=== PATIENT | female | born 1980 | race African-American/Black ===

== ENCOUNTER 2020-02-28 14:37 | Emergency (ER) | payer OTHER, SELFPAY ==
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
[2020-02-28 14:38] VITALS: BP 118/66; PULSE 79; RESP 19; TEMP 36.3; O2SAT 100
[2020-02-28] MEDS: TETANUS,DIPHTHERIA,AC PERTUSSIS ADULT (0.5 ML) BOOSTRIX IM (15:03)
[2020-02-28] MEDS: CEPHALEXIN 500 MG CAPSULE PO (15:04)
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
[2020-02-28 16:09] VITALS: BP 105/69; PULSE 75; RESP 16; O2SAT 99
== END 2020-02-28 16:11 | disposition home or self-care (01) ==
PROVIDERS: Emergency Provider Emergency Medicine; PCP Emergency Medicine
DX: S51.832A Puncture wound without foreign body of left forearm, initial encounter (principal); X99.1XXA Assault by knife, initial encounter; Z23 Encounter for immunization
CPT/HCPCS: 73060; 90471; 90715; 99283; A9270

== ENCOUNTER 2020-04-24 08:00 | Emergency (ER) | payer OTHER, SELFPAY ==
[2020-04-24 08:07] VITALS: BP 112/78; PULSE 84; RESP 16; TEMP 36.6; O2SAT 100
--- NOTE | 2020-04-24 08:22 | ED.BACK ---
HPI - Back Pain/Injury General Chief Complaint: Back Pain/Injury Stated Complaint: hurt my back Time Seen by Provider: 04/24/20 08:21 Source: patient Mode of arrival: ambulatory Limitations: no limitations History of Present Illness HPI Narrative: Patient is a 39-year-old female complaining of right lower back pain radiating to her right buttocks, 8 out of 10, sharp, worse with movement and palpation, started approximately 3 days ago after stepped down wrong while carrying a box. Patient denies any neck pain, chest pain, back pain or abdominal pain. Patient denies any fever or chills. Patient denies any urinary symptoms. Patient denies any weakness numbness or incontinence Related Data Home Medications Medication Instructions Recorded Confirmed No Home Medications 04/24/20 04/24/20 Allergies Allergy/AdvReac Type Severity Reaction Status Date / Time No Known Allergies Allergy Verified 04/24/20 08:13 Review of Systems Review of Systems: All systems reviewed & are unremarkable except as noted in HPI and below Constitutional: Constitutional: Denies body ache(s), Denies chills, Denies excessive sweating, Denies fatigue, Denies fever(s), Denies headache(s), Denies lethargy, Denies malaise, Denies weakness and Denies weight loss Eyes: Eyes: Denies blurry vision, Denies change in vision and Denies loss of vision ENT: Denies dizziness, Denies ear discharge, Denies headache(s), Denies lip swelling, Denies epistaxis, Denies nasal congestion, Denies neck pain, Denies throat swelling and Denies tongue swelling Cardiovascular: Cardiovascular: Denies chest pain, Denies chest pain at rest, Denies chest pain with activity, Denies diaphoresis, Denies rapid heart rate, Denies edema, Denies irregular heart rhythm, Denies lightheadedness, Denies palpitations, Denies dyspnea and Denies dyspnea on exertion Respiratory: Respiratory: Denies chest congestion, Denies cough, Denies hemoptysis, Denies dyspnea and Denies dyspnea on exertion Gastrointestinal: Gastrointestinal: Denies abdominal pain, Denies melena, Denies hematochezia, Denies diarrhea, Denies nausea, Denies vomiting and Denies hematemesis Musculoskeletal: Musculoskeletal: Denies abnormal gait, Denies deformity, Denies joint swelling, Denies neck pain and Denies numbness Neurologic: Denies Abnormal speech present, Denies abnormal gait, Denies confusion, Denies dizziness, Denies headache(s), Denies focal weakness, Denies loss of vision, Denies numbness, Denies Other visual disturbances, Denies Sensory deficit (Neuro) and Denies weakness Psychiatric: Psychiatric: Denies confusion, Denies depression, Denies auditory hallucinations, Denies homicidal ideation and Denies suicidal ideation Endocrine: Endocrine: Denies cold intolerance, Denies excessive sweating, Denies fatigue, Denies heat intolerance and Denies palpitations Hematologic/Lymphatic: Hematologic/Lymphatic: Denies easy bleeding and Denies easy bruising Allergic/Immunologic: Allergic/Immunologic: Denies lip swelling, Denies throat swelling and Denies tongue swelling PMFSH Past Medical History Medical History (Updated 04/24/20 @ 08:25 by Burke Kirkpatrick MD) Chronic tonsillitis Surgical History Surgical History (Updated 05/06/19 @ 09:13 by Katerin Andrew) History of tubal ligation Family History Family History (Updated 01/12/14 @ 07:13 by DOCTOR UNKNOWN) Other Family history of arthritis Hypertension Social History Social History Smoking status: Never smoker Alcohol intake: current Gender identity (if verbalized by the patient): Male Exam Const: General: cooperative, healthy appearing, comfortable, no acute distress, well developed, alert and awake; No confusion Orientation/consciousness: oriented to person, oriented to place, oriented to time, patient oriented x3 and No confusion Limitations: no limitations HENMT: Head: normal to inspection, normocephalic and atraumatic Ears: hear
[2020-04-24] MEDS: KETOROLAC 30 MG/ML VIAL (*BKC) IM (09:16)
[2020-04-24] MEDS: CYCLOBENZAPRINE HCL 10 MG TABLET PO (09:16)
--- NOTE | 2020-04-24 09:25 | PC.NURSE ---
no preg test due to pt having hysterectomy
[2020-04-24 09:55] VITALS: BP 116/60; PULSE 68; RESP 16; O2SAT 100
== END 2020-04-24 09:58 | disposition home or self-care (01) ==
PROVIDERS: Emergency Provider Emergency Medicine; PCP Emergency Medicine
DX: S39.012A Strain of muscle, fascia and tendon of lower back, initial encounter (principal); X50.9XXA Other and unspecified overexertion or strenuous movements or postures, initial encounter
CPT/HCPCS: 96372; 99283; A9270; J1885

== ENCOUNTER 2020-06-01 11:00 | Outpatient (RCR) | payer OTHER, SELFPAY ==
--- NOTE | 2020-05-25 11:21 | PTOPEVAL ---
PHYSICAL THERAPY EVALUATION Thank you for referring Candy Drew to [facility].? Lisa was evaluated with a dx of low back pain/sprain with right leg radiculopathy. The patient is scheduled to be seen for therapy? 2 x/week for 3 weeks. Please review, sign, date and return this plan of care VALARIE. I agree with and certify that the following plan of care is medically necessary. 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 The patient was carrying a long, heavier object and missed a step, caught herself before she fell. The patient began having pain at her back when it happened then got worse as the day went on. The patient was unable to get up the next day due to pain at back and right leg to foot. The patient has been off work since then. Subjective Information The patient had televisit with Query Text:As Reported By Patient/ MD, no testing yet, and MD Family ordered the therapy. The patient is currently caring for a 1 year foster child which requires some lifting. Prior Level of Function Activity Level (Last 3 Months) Occupation delivery, went to gym for cardio/lifting 4x a week prior to injury Hand Dominance Right Activity of Daily Living Ability Independent Indoor/Home Mobility Independent Community Mobility Independent Stairs Ability Independent Functional Cognition (Planning, Shopping Independent , Taking Medications) Cooking Yes Cleaning Yes Laundry Yes Shopping Yes Driving Yes Medications Home Meds (Include: OTC, RX, Vitamins, for her back; hydrocodone prn, Herbals, Dose, Route,and Frequency) Advil on schedule Query Text:Home Med Entries Will No Longer Recall From Past Visits. Home Meds Must Be Re-ente
--- NOTE | 2020-06-06 14:58 | PCPTNOTE ---
Patient did not show up for scheduled appointment this date. Called and had to leave a message.
--- NOTE | 2020-06-08 14:21 | PCPTNOTE ---
Patient did not show up for scheduled appointment this date.
--- NOTE | 2020-06-11 11:43 | PCPTNOTE ---
Patient did not show up for scheduled appointment this date. Called and had to leave a message- instructed patient that therapy is being discontinued due to 3 no show appts in a row.
--- NOTE | 2020-06-11 11:44 | PCPTNOTE ---
PHYSICAL THERAPY DISCHARGE Admitting Provider: Attending Provider: Jace Shrestha MD Patient:Candy Drew Date of :1980 Patient has not returned for any further treatments since 06/01/2020, therefore she will be discharged at this time. Patient?s initial visit was on 05/25/2020 10:00 and she had a total of 3 visits with her dx of low back spasms. The goals have been partially met. Thank you for referring this patient to [facility]. Please review, sign, date and return this discharge summary VALARIE. I have been updated about the patient's current status and I agree with discharge from the above service at this time. Referring Physician Date
== END 2020-06-11 14:45 | disposition home or self-care (01) ==
LOC: ANHPT 11:00
PROVIDERS: PCP Emergency Medicine; Referring Provider Emergency Medicine; Visit Provider Emergency Medicine
DX: M62.830 Muscle spasm of back (principal)
CPT/HCPCS: 97014; 97110; 97140; 97161; G0283

== ENCOUNTER 2021-07-29 12:42 | Emergency (ER) | payer OTHER, SELFPAY ==
--- NOTE | ~2021-07-29 | XR_ITS ---
EXAMINATION: XR elbow RT min 3V, XR wrist RT min 3V DATE: 07/29/2021 14:35 INDICATION: Right wrist and elbow pain with numbness and tingling TECHNIQUE: 1. Anteroposterior, two oblique and lateral views of the right elbow were obtained. 2. Dorsal palmar, oblique, lateral and ulnar deviated views of the right wrist were obtained. COMPARISON: None. FINDINGS: Normal alignment at the right elbow, wrist and visualized hand. No fracture. Of the visualized joint spaces are normal with no erosions or osteophytosis. Soft tissues are unremarkable. No right elbow fernanda int effusion. Of note the radiographs include significant portions of the proximal and distal forea rm however it is unclear whether there is definitive overlap with complete visualization of the midpo rtion of the radius and ulna. IMPRESSION: 1. Negative right wrist and elbow radiographs. Reviewed, dictated and finalized at location A. IMPRESSION: 1. Negative right wrist and elbow radiographs.
[2021-07-29 12:43] VITALS: BP 114/66; PULSE 84; RESP 14; TEMP 36.8; O2SAT 100
[2021-07-29] MEDS: IBUPROFEN 600 MG TABLET PO (14:07)
--- NOTE | 2021-07-29 14:11 | ED.EXTPRO ---
HPI - Extremity Problem General Chief complaint: Extremity Problem,Nontraumatic Stated complaint: upper extremity pain Time Seen by Provider: 07/29/21 13:14 Source: patient Mode of arrival: ambulatory Limitations: no limitations History of Present Illness HPI Narrative: This is a 40 year old female right hand dominant who presents for evaluation of right elbow and right wrist pain . She has noticed intermittent pain for 1- 2 weeks. She reports her pain occurs mostly at night. She has worsening pain with movement of right wrist. She denies trauma, swelling or redness. She is also having intermittent tingling in her hands. Denies other focal deficits. Related Data Allergies Allergy/AdvReac Type Severity Reaction Status Date / Time No Known Allergies Allergy Verified 07/29/21 12:45 Review of Systems Review of Systems: All systems reviewed & are unremarkable except as noted in HPI and below PMFSH Past Medical History Medical History Chronic tonsillitis Surgical History Surgical History History of tubal ligation Family History Family History (Updated 01/12/14 @ 07:13 by DOCTOR UNKNOWN) Other Family history of arthritis Hypertension Social History Social History Smoking status: Never smoker Alcohol intake: current Gender identity (if verbalized by the patient): Male Exam Const: General: alert Orientation/consciousness: patient oriented x3 Eyes: EOM: EOMs intact bilaterally Resp: Effort & Inspection: normal respiratory effort Skin: General skin exam: normal color Rashes: no rashes Neuro: General: patient oriented x3, moves all extremities and CN's II-XI intact bilaterally Extrem: Other: palpable brachia/ radial, ulnar pulses, no swelling, no deformity, no erythema. reproducible pain with movement at wrist and palpation. sensation intact. Psych: Mental Status: mental status grossly normal Affect: normal affect Course Reevaluation(s) Reevaluation #1: I discussed with patient she may have pitch nerve or tendonitis. She will be started on antiinflammatomies, wear brace and follow up with PCP . Date: 07/29/21 Time: 14:15 Vital Signs Vital signs: Vital Signs Temperature 98.3 F 07/29/21 12:43 Pulse Rate 84 07/29/21 12:43 Respiratory Rate 14 07/29/21 12:43 Blood Pressure 114/66 07/29/21 12:43 Pulse Oximetry 100 07/29/21 12:43 Temperature 98.3 F 07/29/21 12:43 Pulse Rate 84 07/29/21 12:43 Respiratory Rate 14 07/29/21 12:43 Blood Pressure 114/66 07/29/21 12:43 Pulse Oximetry 100 07/29/21 12:43 MDM - Extremity (Nontraumatic) Imaging Data Radiologist's impression: ITS Impressions Elbow X-Ray 07/29/21 14:39 IMPRESSION: 1. Negative right wrist and elbow radiographs. Wrist X-Ray 07/29/21 14:39 IMPRESSION: 1. Negative right wrist and elbow radiographs. Discharge Plan Discharge Clinical Impression: Paresthesia and pain of right extremity Patient Disposition: Home, Self-Care Condition: Stable Instructions: Peripheral Neuropathy (ED), Paresthesia (ED) Additional Instructions: Today you were evaluated for possible nerve inflammation. Get wrist brace to see if this helps with your symptoms. Take antiinflammatories and follow up with your primary care provider. Prescriptions: New naproxen [Naprosyn] 500 mg tablet 500 mg PO BID PRN (Reason: pain) Qty: 20 RF: 0 methylprednisolone [Medrol (Gerald)] 4 mg tablets,dose pack See Rx Instructions .ROUTE .COMPLEX Qty: 21 RF: 0 No Action cyclobenzaprine 10 mg tablet 10 mg PO TID PRN (Reason: muscle spasm) Qty: 9 RF: 0 naproxen [Naprosyn] 500 mg tablet 500 mg PO BID PRN (Reason: pain) Qty: 10 RF: 0 Follow-up/Referrals: Jace Shrestha MD [Primary Care Provider] -
== END 2021-07-29 15:15 | disposition home or self-care (01) ==
PROVIDERS: Emergency Provider General Practice; PCP Emergency Medicine
DX: R20.2 Paresthesia of skin (principal); M25.521 Pain in right elbow; M25.531 Pain in right wrist
CPT/HCPCS: 73080; 73110; 99284; A9270

== ENCOUNTER 2021-09-06 16:06 | Outpatient (CLI) | payer OTHER, SELFPAY ==
--- NOTE | ~2021-09-06 | US_ITS ---
EXAMINATION: US abdomen complete DATE: 09/06/2021 16:50 INDICATION: Elevated ferritin TECHNIQUE: Multiple grayscale and Doppler ultrasound images of the abdomen were obtained. COMPARISON: None available FINDINGS: Bowel gas obscures visualization of the pancreas. The liver is normal with normal echogenic ity and echotexture. No surface nodularity. Normal hepatopetal flow in the main portal vein. The gall bladder is normal with no abnormal wall thickening, pericholecystic fluid or stones. The normal commo n bile duct measures 3 mm. There was no sonographic Richardson sign. The visualized portions of the aorta and inferior vena cava are normal. The right kidney measures 11.5 x 5.5 x 3.6 cm. The left kidney measures 11.1 x 4.6 x 5.4 cm. The kidn eys demonstrate normal parenchymal echogenicity. There is no hydronephrosis. The spleen is normal in appearance and measures 9.6 cm. IMPRESSION: 1. No sonographic correlate for the patient's symptoms. Reviewed, dictated and finalized at location F.
== END 2021-09-06 16:07 | disposition home or self-care (01) ==
LOC: ANHIMG 16:10
PROVIDERS: PCP Emergency Medicine; Visit Provider Emergency Medicine
DX: R79.89 Other specified abnormal findings of blood chemistry (principal)
CPT/HCPCS: 76700

== ENCOUNTER 2021-10-23 08:42 | Outpatient (CLI) | payer OTHER, SELFPAY ==
--- NOTE | 2021-10-23 11:00 | NEURO_ITS ---
Impression: # Complains of numbness and pain in right hand. # Normal nerve conduction study with no evidence of Carpal Tunnel Syndrome or ulnar neuropathy. # Normal needle/EMG exam. # Clinical correlation recommended. Nerve Conduction Studies Anti Sensory Summary Table Stim Site NR Peak (ms) P-T Amp (?V) Site1 Site2 Delta-P (ms) Dist (cm) Antolin (m/s) Right Median Anti Sensory (2-3nd Digit) Wrist 3.1 30.6 Wrist 2-3nd Digit 3.1 14.0 45 Wrist 3.1 61.9 Wrist 2-3nd Digit 3.1 14.0 45 Right Radial Anti Sensory (Base 1st Digit) Wrist 2.9 22.2 Wrist Base 1st Digit 2.9 0.0 Right Ulnar Anti Sensory (5th Digit) Wrist 2.4 9.8 Wrist 5th Digit 2.4 14.0 58 Motor Summary Table Stim Site NR Onset (ms) O-P Amp (mV) Site1 Site2 Delta-0 (ms) Dist (cm) Antolin (m/s) Right Median Motor (Abd Poll Brev) Wrist 2.9 2.9 Elbow Wrist 4.9 26.0 53 Elbow 7.8 3.0 Right Ulnar Motor (Abd Dig Minimi) Wrist 3.0 6.8 A Elbow Wrist 5.1 28.0 55 A Elbow 8.1 6.5 F Wave Studies NR F-Lat (ms) L-R F-Lat (ms) Right Median (Mrkrs) (Abd Poll Brev) 26.62 Right Ulnar (Mrkrs) (Abd Dig Min) 27.36 EMG Side Muscle Nerve Root Ins Act Fibs Amp Dur Recrt Comment Right 1stDorInt Ulnar C8-T1 Nml Nml Nml Nml Nml Right Ext Indicis Radial (Post Int) C7-8 Nml Nml Nml Nml Nml Right Ext Digitorum Radial (Post Int) C7-8 Nml Nml Nml Nml Nml Right BrachioRad Radial C5-6 Nml Nml Nml Nml Nml Right PronatorTeres Median C6-7 Nml Nml Nml Nml Nml Right Abd Poll Brev Median C8-T1 Nml Nml Nml Nml Nml MTDD
== END 2021-10-23 08:43 | disposition home or self-care (01) ==
LOC: ANHNEURO 08:44
PROVIDERS: PCP Emergency Medicine; Visit Provider Emergency Medicine
DX: R50.9 Fever, unspecified (principal)
CPT/HCPCS: 95886; 95909

== ENCOUNTER 2022-02-10 21:57 | Emergency (ER) | payer OTHER, SELFPAY ==
--- NOTE | ~2022-02-10 | CT_ITS ---
EXAMINATION: CT abdomen pelvis w con DATE: 02/10/2022 23:53 INDICATION: Left lower quadrant abdominal pain. TECHNIQUE: Computed tomography (CT) of the abdomen and pelvis was performed with 100 mL Omnipaque 350 intravenous contrast. Automated exposure control and iterative reconstruction technique were employe d. The dose-length product was 734.47 mGy-cm. COMPARISON: None. FINDINGS: The visualized portions of the lung bases demonstrate mild atelectasis. No pleural effusion . The heart size is normal. No pericardial effusion. The liver, gallbladder, spleen, pancreas, adrena l glands, and kidneys are normal. There are surgical changes of the stomach. There are no dilated loo ps of bowel. The appendix is normal. There are no pathologically enlarged lymph nodes. There is physi ologic fluid in the pelvis. There is mild thoracolumbar spondylosis. IMPRESSION: 1. No specific etiology for the patient's symptoms. Reviewed, dictated and finalized at location A.
[2022-02-10 22:00] VITALS: BP 130/66; PULSE 78; RESP 16; TEMP 36.9; O2SAT 100
[2022-02-10 22:38] LABS: Basophils Percent Auto 0.6 % (0.2-1.2); Eosinophils Absolute Auto 0.1 K/mm3 (0-0.3); Eosinophils Percent Auto 1.3 % (0-4.4); Hematocrit 41.5 % (37.0-47.0); Hemoglobin 12.8 g/dL (12.0-15.0); Immature Granulocyte Absolute 0.01 K/mm3 (0.00-0.031); Immature Granulocyte Percent A 0.1 % (0-0.5); Lymphocytes Absolute Auto 3.57 K/mm3 (0.9-3.2); Lymphocytes Percent Auto 52.8 % (18.3-44.2); Mean Corpuscular HGB Conc 30.8 g/dl (32-36); Mean Corpuscular Hemoglobin 27.1 pg (26-34); Mean Corpuscular Volume 87.7 fl (80-100); Mean Platelet Volume 9.8 fl (7.4-10.4); Monocytes Absolute Auto 0.5 K/mm3 (0.1-0.6); Monocytes Percent Auto 7.1 % (2.6-8.5); Neutrophils Absolute Auto 2.6 K/mm3 (1.3-6.7); Neutrophils Percent Auto 38.1 % (45.5-73.1); Platelet Count Result 258 k/mm3 (150-375); Red Blood Count 4.73 M/mm3 (4.2-5.4); Red Cell Distribution Width 13.2 % (11.5-14.5); White Blood Count 6.8 K/mm3 (4.5-10.0)
[2022-02-10 22:49] LABS: Alanine Aminotransferase 19 U/L (6-35); Albumin Level 4.3 g/dL (3.5-5.1); Alkaline Phosphatase 53 U/L (38-126); Anion Gap 6 mmol/L (8-16); Aspartate Amino Transferase 29 U/L (14-36); Bilirubin,Total 0.5 mg/dL (0.2-1.3); Blood Urea Nitrogen 14 mg/dL (7-17); Carbon Dioxide 28 mmol/L (22-30); Chloride 105 mmol/L (98-107); Estimated CRCL calculation 84 ml/min; Estimated Glomerular Filt Rate > 60; Glucose 108 mg/dL (65-110); Lipase 59 U/L (23-300); Sodium 139 mmol/L (137-145)
--- NOTE | 2022-02-10 23:37 | ED.GENADULT ---
HPI - General Adult General Chief complaint: Abdominal Pain Stated complaint: abd pain Time Seen by Provider: 02/10/22 23:08 History of Present Illness HPI narrative: 41-year-old female presented emerged department for evaluation of left lower quadrant pain. Patient states the symptoms started about 630 tonight when she was laying on the bed. Patient denies any falls or injuries. Patient states she does have some associated nausea without vomiting. Patient states she also does have a history of constipation. 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 Patient did have a hysterectomy at that time. Related Data Allergies Allergy/AdvReac Type Severity Reaction Status Date / Time No Known Allergies Allergy Verified 02/10/22 22:01 Review of Systems Review of Systems: CONSTITUTIONAL: Denies fever, chills, or sweats. EYES: Denies visual changes, redness, or discharge. ENT: Denies rhinorrhea, congestion, sore throat, or otalgia. CARDIOVASCULAR: Denies chest pain, palpitations, or edema. RESPIRATORY: Denies cough or dyspnea. GASTROINTESTINAL: See HPI GENITOURINARY: Denies dysuria or hematuria. SKIN: Denies rash or itching. MUSCULOSKELETAL: Denies back pain, joint pain, or myalgia. NEUROLOGIC: Denies headache, numbness, or weakness. COUNTS INCLUDE 234 BEDS AT THE [facility] Past Medical History Medical History (Updated 02/11/22 @ 01:10 by Christoph Keith MD) Chronic tonsillitis Surgical History Surgical History History of tubal ligation Status post total hysterectomy and bilateral salpingo-oophorectomy Family History Family History Other Family history of arthritis Hypertension Social History Social History (Updated 12/11/21 @ 15:08 by Kendy Bower MA) Smoking status: Never smoker Alcohol intake: current Substance use: never Substance use type: does not use Gender identity (if verbalized by the patient): Female Sexual Orientation (if Verbalized by the Patient): Straight or Heterosexual Exam Narrative: APPEARANCE: Well appearing, no pain, no distress, well-nourished. HEAD: normocephalic, atraumatic. EYES: PERRLA/EOMI, conjunctivae clear. NOSE: Normal no drainage THROAT: Pharynx clear, no exudate. NECK: Supple. No adenopathy, no masses. RESPIRATORY: Airway patent, respirations nonlabored. Clear to auscultation bilaterally, no rales, rhonchi, wheezing. CARDIOVASCULAR: Regular rate and rhythm without murmurs rubs or gallops. ABDOMINAL: Soft, lower abdominal tenderness to palpation. No rebound or guarding MUSCULOSKELETAL: Moves all extremities. Strength/ROM intact, No edema, No calf tenderness. NEURO: Alert. Cranial nerves II through XII intact. Grossly intact SKIN: Warm, dry. Normal Color Course Course Emergency Course: And did feel improved with treatment. Patient had bilirubin of the results of the labs and imaging. All questions concerns were addressed. Vital Signs Vital signs: Vital Signs Temperature 98.5 F 02/10/22 22:00 Pulse Rate 78 02/10/22 22:00 Respiratory Rate 16 02/10/22 22:00 Blood Pressure 130/66 02/10/22 22:00 Pulse Oximetry 100 02/10/22 22:00 Temperature 98.5 F 02/10/22 22:00 Pulse Rate 62 02/11/22 01:06 Respiratory Rate 16 02/11/22 01:06 Blood Pressure 110/68 02/11/22 01:06 Pulse Oximetry 100 02/11/22 01:06 Medical Decision Making Vital Signs Vital Signs: Vital Signs Temperature 98.5 F 02/10/22 22:00 Pulse Rate 78 02/10/22 22:00 Respiratory Rate 16 02/10/22 22:00 Blood Pressure 130/66 02/10/22 22:00 Pulse Oximetry 100 02/10/22 22:00 Temperature 98.5 F 02/10/22 22:00 Pulse Rate 62 02/11/22 01:06 Respiratory Rate 16 02/11/22 01:06 Blood Pressure 110/68 02/11/22 01:06 Pulse Oximetry 100 02/11/22 01:06 Lab Data Lab results reviewed: Yes I re
[2022-02-11] MEDS: HYDROmorphone HCL INJ (*CRX) 1 MG/ML SYR 0.5 MG IV PUSH (00:12)
[2022-02-11] MEDS: SODIUM CHLORIDE 0.9% IV 1,000 ML 999 ML IV CONT (00:13)
[2022-02-11 00:51] LABS: Appearance Urine Slightly Cloudy (Clear); Bilirubin Urine Negative (Negative); Blood Urine Negative (Negative); Color Urine Yellow (Yellow); Glucose Urine UA Negative (Negative); Ketones Urine Negative (Negative); Leukocyte Esterase Ur Negative LEU/UL (Negative); Nitrate Urine Negative (Negative); Protein Urine Negative (Negative); Urobilinogen Urine 0.2 mg/dL (<2.0); pH Urine 5.5 (5.0-9.0)
[2022-02-11 01:03] LABS: Mucus Urine Rare /lpf; RBC Urine 0-2 /hpf (0-2); Squamous Epithelial Cell Urine Few /hpf (Few); WBC Urine 0-3 /hpf
[2022-02-11 01:04] LABS: Add Urine Microscopic? NO
[2022-02-11 01:06] VITALS: BP 110/68; PULSE 62; RESP 16; O2SAT 100
== END 2022-02-11 01:29 | disposition home or self-care (01) ==
PROVIDERS: Emergency Provider Emergency Medicine; PCP Emergency Medicine
DX: R10.32 Left lower quadrant pain (principal); Z90.710 Acquired absence of both cervix and uterus; Z90.722 Acquired absence of ovaries, bilateral
CPT/HCPCS: 36415; 74177; 80053; 81003; 81025; 83690; 85025; 96361; 96374; 99284; J1170; J7030; Q9967

== ENCOUNTER 2022-04-28 11:55 | Emergency (ER) | payer OTHER, SELFPAY ==
[2022-04-28 12:19] VITALS: BP 113/72; PULSE 100; RESP 16; TEMP 36.4; O2SAT 99
[2022-04-28 13:07] LABS: Influenza A QL RT-PCR Positive (Negative); Influenza B QL RT-PCR Negative (Negative); RSV RNA, RT-PCR Negative (Negative); SARS-CoV-2 RNA PCR Negative
--- NOTE | 2022-04-28 13:53 | ED.GENADULT ---
HPI - General Adult General Chief complaint: Upper Respiratory Infection Stated complaint: cough,fever,body aches Time Seen by Provider: 04/28/22 13:13 History of Present Illness HPI narrative: 41-year-old female presented to the emergency department for evaluation of 2 days of cough and generalized fatigue. Patient did test positive for influenza A. Related Data Allergies Allergy/AdvReac Type Severity Reaction Status Date / Time No Known Allergies Allergy Verified 02/10/22 22:01 Review of Systems Review of Systems: CONSTITUTIONAL: Subjective fever EYES: Denies visual changes, redness, or discharge. ENT: See HPI CARDIOVASCULAR: Denies chest pain, palpitations, or edema. RESPIRATORY: See HPI GASTROINTESTINAL: Denies abdominal pain, nausea, vomiting, or diarrhea. GENITOURINARY: Denies dysuria or hematuria. SKIN: Denies rash or itching. MUSCULOSKELETAL: Denies back pain, joint pain, or myalgia. NEUROLOGIC: Denies headache, numbness, or weakness. [facility] Past Medical History Medical History (Updated 04/28/22 @ 13:56 by Christoph Keith MD) Chronic tonsillitis Surgical History Surgical History History of tubal ligation Status post total hysterectomy and bilateral salpingo-oophorectomy Family History Family History Other Family history of arthritis Hypertension Social History Social History (Updated 12/11/21 @ 15:08 by Kendy Bower MA) Smoking status: Never smoker Alcohol intake: current Substance use: never Substance use type: does not use Gender identity (if verbalized by the patient): Female Sexual Orientation (if Verbalized by the Patient): Straight or Heterosexual Exam Narrative: APPEARANCE: Well appearing, no pain, no distress, well-nourished. HEAD: normocephalic, atraumatic. EYES: PERRLA/EOMI, conjunctivae clear. NOSE: Normal no drainage EARS:TMS clear with good light reflex. THROAT: Pharynx clear, no exudate. NECK: Supple. No adenopathy, no masses. RESPIRATORY: Airway patent, respirations nonlabored. Clear to auscultation bilaterally, no rales, rhonchi, wheezing. CARDIOVASCULAR: Regular rate and rhythm without murmurs rubs or gallops. ABDOMINAL: Soft, nontender, nondistended, normal bowel sounds MUSCULOSKELETAL: Moves all extremities. Strength/ROM intact, No edema, No calf tenderness. NEURO: Alert. Cranial nerves II through XII intact. Grossly intact SKIN: Warm, dry. Normal Color Course Course Emergency Course: Patient did test positive for influenza a. Patient was updated on the plan for symptomatic treatment at home. Patient was provided Tessalon Perles and albuterol and inhaler for cough. Patient was also advised to take Tylenol and ibuprofen for pain control. Vital Signs Vital signs: Vital Signs Temperature 97.5 F L 04/28/22 12:19 Pulse Rate 100 04/28/22 12:19 Respiratory Rate 16 04/28/22 12:19 Blood Pressure 113/72 04/28/22 12:19 Pulse Oximetry 99 04/28/22 12:19 Oxygen Delivery Room Air 04/28/22 12:19 Temperature 97.5 F L 04/28/22 12:19 Pulse Rate 100 04/28/22 12:19 Respiratory Rate 16 04/28/22 12:19 Blood Pressure 113/72 04/28/22 12:19 Pulse Oximetry 99 04/28/22 12:19 Oxygen Delivery Room Air 04/28/22 12:19 Medical Decision Making Vital Signs Vital Signs: Vital Signs Temperature 97.5 F L 04/28/22 12:19 Pulse Rate 100 04/28/22 12:19 Respiratory Rate 16 04/28/22 12:19 Blood Pressure 113/72 04/28/22 12:19 Pulse Oximetry 99 04/28/22 12:19 Oxygen Delivery Room Air 04/28/22 12:19 Temperature 97.5 F L 04/28/22 12:19 Pulse Rate 100 04/28/22 12:19 Respiratory Rate 16 04/28/22 12:19 Blood Pressure 113/72 04/28/22 12:19 Pulse Oximetry 99 04/28/22 12:19 Oxygen Delivery Room Air 04/28/22 12:19 Lab Data Lab results reviewed: Yes I reviewed the patient's lab results. Labs:
== END 2022-04-28 14:14 | disposition home or self-care (01) ==
PROVIDERS: Emergency Provider Emergency Medicine; PCP Emergency Medicine
DX: J10.1 Influenza due to other identified influenza virus with other respiratory manifestations (principal); Z20.822 Contact with and (suspected) exposure to COVID-19; Z90.710 Acquired absence of both cervix and uterus; Z90.722 Acquired absence of ovaries, bilateral; Z90.79 Acquired absence of other genital organ(s)
CPT/HCPCS: 87637; 99283

== ENCOUNTER 2022-06-06 16:23 | Emergency (ER) | payer OTHER, SELFPAY ==
--- NOTE | ~2022-06-06 | CT_ITS ---
EXAMINATION: CT abdomen pelvis w con DATE: 06/06/2022 19:05 INDICATION: Right flank pain. Right lower quadrant abdominal pain. Hematuria. TECHNIQUE: Computed tomography (CT) of the abdomen and pelvis was performed with 100 mL Omnipaque 350 intravenous contrast. Automated exposure control and iterative reconstruction technique were employe d. The dose-length product was 706.96 mGy-cm. COMPARISON: CT abdomen and pelvis 02/10/2022 FINDINGS: The visualized portions of the lung bases demonstrate mild atelectasis. There is mild scarr ing in paraspinal right lower lobe. No pleural effusion. The heart size is normal. No pericardial eff usion. There is mild elevation of right hemidiaphragm. The liver, gallbladder, spleen, pancreas, adre nal glands, and kidneys are normal. There is a 2.1 cm corpus luteum cyst in left ovary. There is ashraf ges of gastric sleeve procedure. The appendix is normal. There are no dilated loops of bowel. There i s no free intraperitoneal fluid. There is mild thoracolumbar spondylosis. IMPRESSION: 1. No etiology for the patient's symptoms. Reviewed, dictated and finalized at location A. [employer] MACHINE OPERATOR
--- NOTE | ~2022-06-06 | XR_ITS ---
EXAMINATION: XR abdomen/kub 1V DATE: 06/06/2022 17:59 INDICATION: Abdominal pain. Constipation. TECHNIQUE: A supine view of the abdomen on 2 radiographs was obtained. COMPARISON: CT abdomen and pelvis 02/10/2022 FINDINGS: There is mildly dilated small bowel in left abdomen. There is a staple line at the stomach. The colon is normal in caliber. There is a moderate volume of stool in the colon. There are phleboli ths in the pelvis. IMPRESSION: 1. Mildly dilated small bowel in left abdomen, consistent with adynamic ileus versus partial small tawanda wel obstruction. Reviewed, dictated and finalized at location A. LY CATALOGUER IMPRESSION: 1. Mildly dilated small bowel in left abdomen, consistent with adynamic ileus v ersus partial small bowel obstruction.
[2022-06-06 16:52] VITALS: BP 114/71; PULSE 79; RESP 16; TEMP 36.9; O2SAT 99
[2022-06-06 17:08] LABS: Appearance Urine Slightly Cloudy (Clear); Bilirubin Urine Negative (Negative); Blood Urine Trace-intact (Negative); Color Urine Yellow (Yellow); Glucose Urine UA Negative (Negative); Ketones Urine Negative (Negative); Leukocyte Esterase Ur Negative LEU/UL (Negative); Nitrate Urine Negative (Negative); Protein Urine Negative (Negative); Urobilinogen Urine 0.2 mg/dL (<2.0)
[2022-06-06 17:22] LABS: Add Urine Microscopic? YES; Bacteria Urine Trace /hpf; Squamous Epithelial Cell Urine Moderate /hpf (Few)
--- NOTE | 2022-06-06 17:26 | ED.GENADULT ---
HPI - General Adult General Chief complaint: Urogenital-Female Stated complaint: BACK PAIN,HEMATURIA Time Seen by Provider: 06/06/22 17:12 History of Present Illness HPI narrative: 41-year-old female history of constipation presents to the emergency room for evaluation of low back pain, suprapubic pain, frequent urination. Patient states symptoms been going on since last night. Relays that her last bowel movement was yesterday, but she is typically irregular with her BMs. Patient states after she urinated earlier today noticed some bright red blood on the toilet paper and became concerned. Describes abdominal pain as a fullness feeling. Back pain is not worse with any movements. Denies any injury or trauma. Related Data Allergies Allergy/AdvReac Type Severity Reaction Status Date / Time No Known Allergies Allergy Verified 06/06/22 17:57 Review of Systems Review of Systems: CONSTITUTIONAL: Denies fever, chills, or sweats. EYES: Denies visual changes, redness, or discharge. ENT: Denies rhinorrhea, congestion, sore throat, or otalgia. CARDIOVASCULAR: Denies chest pain, palpitations, or edema. RESPIRATORY: Denies cough or dyspnea. GASTROINTESTINAL: Reports abdominal pain, constipation GENITOURINARY: Reports hematuria SKIN: Denies rash or itching. MUSCULOSKELETAL: Reports low back pain NEUROLOGIC: Denies headache, numbness, dizziness, or weakness. PSYCHIATRIC: Denies anxiety or depression. PMFSH Past Medical History Medical History Chronic tonsillitis Surgical History Surgical History History of tubal ligation Status post total hysterectomy and bilateral salpingo-oophorectomy Family History Family History Other Family history of arthritis Hypertension Social History Social History Smoking status: Never smoker Alcohol intake: current Substance use: never Substance use type: does not use Living arrangements: with family Occupation/Education: occupation Gender identity (if verbalized by the patient): Female Sexual Orientation (if Verbalized by the Patient): Straight or Heterosexual Exam Narrative: GENERAL: Well-appearing, well-nourished, no physical limitations, and in no acute distress. HEAD: Normocephalic, atraumatic. EYES: Conjunctivae normal, PERRLA and EOMI. CHEST: Clear to auscultation. No respiratory distress. No wheezes rales or rhonchi. No tenderness. HEART: Regular rate and rhythm. No murmur heard. Normal peripheral pulses. ABDOMEN: Soft, suprapubic tenderness, nondistended, normal active bowel sounds. BACK: No CVA tenderness EXTREMITIES: Normal range of motion. No edema. No clubbing or cyanosis SKIN: Warm, dry, no rash. No noted wounds NEURO: No focal deficits. Alert and oriented x3. MAEW. CN's II-XI intact bilaterally, normal gait PSYCH: Cooperative. Normal mood and affect. Course Vital Signs Vital signs: Vital Signs Temperature 36.9 C 06/06/22 16:52 Pulse Rate 79 06/06/22 16:52 Respiratory Rate 16 06/06/22 16:52 Blood Pressure 114/71 06/06/22 16:52 Pulse Oximetry 99 06/06/22 16:52 Oxygen Delivery Room Air 06/06/22 16:52 Temperature 36.9 C 06/06/22 16:52 Pulse Rate 79 06/06/22 16:52 Respiratory Rate 16 06/06/22 16:52 Blood Pressure 114/71 06/06/22 16:52 Pulse Oximetry 99 06/06/22 16:52 Oxygen Delivery Room Air 06/06/22 16:52 Medical Decision Making [facility] Narrative Medical decision making narrative: 41-year-old female history of constipation presented with lower abdominal pain that radiated to her back, primarily on her right side. Patient noticed a scant amount of blood after she wiped post void. KUB and CT abdomen both show moderate to large amount of retained stool. Discussed findings with patient, anne
[2022-06-06] MEDS: SODIUM CHLORIDE 0.9% IV 1,000 ML 999 ML IV CONT (18:22)
[2022-06-06 18:28] LABS: Basophils Percent Auto 0.7 % (0.2-1.2); Eosinophils Absolute Auto 0.1 K/mm3 (0-0.3); Eosinophils Percent Auto 1.1 % (0-4.4); Hematocrit 40.5 % (37.0-47.0); Hemoglobin 12.9 g/dL (12.0-15.0); Immature Granulocyte Absolute 0.01 K/mm3 (0.00-0.031); Immature Granulocyte Percent A 0.2 % (0-0.5); Lymphocytes Absolute Auto 2.79 K/mm3 (0.9-3.2); Lymphocytes Percent Auto 51.8 % (18.3-44.2); Mean Corpuscular HGB Conc 31.9 g/dl (32-36); Mean Corpuscular Hemoglobin 27.3 pg (26-34); Mean Corpuscular Volume 85.8 fl (80-100); Mean Platelet Volume 9.5 fl (7.4-10.4); Monocytes Absolute Auto 0.5 K/mm3 (0.1-0.6); Monocytes Percent Auto 8.5 % (2.6-8.5); Neutrophils Percent Auto 37.7 % (45.5-73.1); Platelet Count Result 257 k/mm3 (150-375); Red Blood Count 4.72 M/mm3 (4.2-5.4); Red Cell Distribution Width 13.5 % (11.5-14.5); White Blood Count 5.4 K/mm3 (4.5-10.0)
[2022-06-06 18:38] LABS: Alanine Aminotransferase 20 U/L (6-35); Albumin Level 4.2 g/dL (3.5-5.1); Alkaline Phosphatase 70 U/L (38-126); Anion Gap 5 mmol/L (8-16); Aspartate Amino Transferase 28 U/L (14-36); Bilirubin,Total 0.5 mg/dL (0.2-1.3); Blood Urea Nitrogen 16 mg/dL (7-17); Carbon Dioxide 29 mmol/L (22-30); Chloride 102 mmol/L (98-107); Estimated CRCL calculation 82 ml/min; Estimated Glomerular Filt Rate > 60; Glucose 87 mg/dL (65-110); Potassium 3.8 mmol/L (3.4-5.0); Sodium 136 mmol/L (137-145)
[2022-06-06 19:58] VITALS: BP 137/85; PULSE 72; RESP 18; O2SAT 98
== END 2022-06-06 20:00 | disposition home or self-care (01) ==
PROVIDERS: Emergency Provider Nurse Practitioner Family; PCP Emergency Medicine
DX: K59.00 Constipation, unspecified (principal)
CPT/HCPCS: 36415; 74018; 74177; 80053; 81001; 85025; 87077; 87086; 87186; 96360; 99284; J7030; Q9967